=== PATIENT | female | born 1970 | race Caucasian/White ===

== ENCOUNTER 2017-02-01 06:52 | Day surgery (SDC) | payer BC ==
[~2017-02-01] VITALS: Ht 167.6 cm; Wt 127.1 kg
[~2017-02-01 06:52] MED LIST: BIOTIN PO; CALCIUM PO; DEPO-SUBQ104 MG/0.6; DEPO-SUBQ104 MG/0.6 SC; DESYREL100 MG PO; IRON PO; MOBIC7.5 MG PO; ULTRAM50 MG PO; VICODIN 5-3001 EACH PO; ZOFRAN ODT4 MG PO
[2017-02-01 07:19] VITALS: BP 160/73
[2017-02-01] MEDS ORDERED: VICODIN 5-3001 EACH PO (08:33)
[2017-02-01 10:10] VITALS: BP 158/89
== END 2017-02-01 11:35 | disposition home or self-care (01) ==
LOC: SDC
DX: N93.9 Abnormal uterine and vaginal bleeding, unspecified (principal); Z83.3 Family history of diabetes mellitus; Z82.49 Family history of ischemic heart disease and other diseases of the circulatory system
CPT/HCPCS: 87641; 88305; J0131; J1100; J1885; J2250; J2405; J2765; J3010